=== PATIENT | female | born 1945 | race Caucasian/White ===

== ENCOUNTER 2017-06-17 04:25 | Emergency (ER) | payer MEDICARE, OTHER ==
[~2017-06-17] VITALS: Ht 165.1 cm; Wt 108.2 kg
[~2017-06-17 04:25] MED LIST: AMLO5TAB96 PO; DIOV160T8 PO; KAPIDEX; PANT20 PO; PROM25SU8 PO; TOPR50TA PO; VYTO10TA32 PO; ZITH250T PO
[2017-06-17 04:33] VITALS: BP 174/105; PULSE 97; RESP 20; TEMP 97.7; O2SAT 99
[2017-06-17] MEDS ORDERED: DIOV320T6 PO (04:57)
[2017-06-17] MEDS ORDERED: AMLO5 PO (04:59)
[2017-06-17] MEDS ORDERED: SIMV20TA PO (04:59)
[2017-06-17] MEDS ORDERED: TOPR50TA PO (04:59)
[2017-06-17] MEDS ORDERED: PANT20 PO (04:59)
[2017-06-17] MEDS ORDERED: AMOX250C3 PO (05:03)
[2017-06-17] MEDS ORDERED: SODIUM CHLOR 0.9% 1000 ML INJ 1,000 ML IV SCH (05:18)
--- NOTE | 2017-06-17 05:24 | PD ---
HPI Chief Complaint: GI Complaint Time Seen by Provider: 05:18 Travel History International Travel<30 days: No Contact w/Intl Traveler<30days: No Traveled to known affect area: No History of Present Illness HPI The patient is a 72-year-old female that began getting nauseated Tuesday night. She took some Pepto-Bismol. She had several black stools yesterday and was worried this might be bloody stools. She denies any fever. She is still nauseated. She still has some slight epigastric discomfort. She has had diarrhea twice yesterday evening. She denies any fever. She denies any history of bowel problems. She is on 250 mg of amoxicillin every other day because of frequent urinary tract infections. She states she had urinary frequency several days ago. PFSH Past Medical History Cardiovascular Problems: Yes (HTN, Mitral valve prolapse) High Cholesterol: Yes Diminished Hearing: No GERD: Yes Hypertension: Yes Tetanus Vaccination: < 5 Years Influenza Vaccination: Yes ?: Not Past Surgical History Cholecystectomy: Yes Hysterectomy: Yes (Partial) Joint Replacement: Yes (LEFT HIP) Social History Alcohol Use: No Tobacco Use: No Substance Use: No Allergies-Medications (Allergen,Severity, Reaction): Coded Allergies: moxifloxacin (Unverified Allergy, Severe, HIVES, 06/17/17) Sulfa (Sulfonamide Antibiotics) (Unverified Allergy, Intermediate, HIVES, 06/17/17) codeine (Unverified Adverse Reaction, Intermediate, HEADACHE, 06/17/17) Reported Meds & Prescriptions Reported Meds & Active Scripts Active Reported Amoxicillin 250 Mg Cap 250 Mg PO DAILY Simvastatin 20 Mg Tab 20 Mg PO DAILY Protonix (Pantoprazole Sodium) 20 Mg Tab 20 Mg PO DAILY Toprol XL (Metoprolol Succinate) 50 Mg Tab 50 Mg PO DAILY Norvasc (Amlodipine Besylate) 5 Mg Tab 5 Mg PO DAILY Diovan Hct (Valsartan-Hydrochlorothiazide) 320-25 Mg Tab 1 Tab PO DAILY [Kapidex] 60 Mg Review of Systems Except as stated in HPI: all other systems reviewed are Neg Physical Exam Narrative GENERAL: The patient is alert, oriented 3, slightly dehydrated-appearing and minimal apparent distress with her bilateral upper quadrant discomfort. She does not appear anemic. Her vital signs show blood pressure 170 05 but are otherwise normal. SKIN: Focused skin assessment warm/dry. No skin rash is seen. HEAD: Atraumatic. Normocephalic. EYES: Pupils equal and round. No scleral icterus. No injection or drainage. ENT: No nasal bleeding or discharge. Mucous membranes pink and moist. NECK: Trachea midline. No JVD. CARDIOVASCULAR: Regular rate and rhythm. No murmur appreciated. RESPIRATORY: No accessory muscle use. Clear to auscultation. Breath sounds equal bilaterally. GASTROINTESTINAL: Abdomen soft, with minimal discomfort in the bilateral upper quadrants, nondistended. Hepatic and splenic margins not palpable. No guarding or rebound is present. He does have some minimal bilateral flank tenderness. MUSCULOSKELETAL: No obvious deformities. No clubbing. No cyanosis. No edema. NEUROLOGICAL: Awake and alert. No obvious cranial nerve deficits. Motor grossly within normal limits. Normal speech. PSYCHIATRIC: Appropriate mood and affect; insight and judgment normal. RECTAL EXAM: No masses or tenderness, stool is brown, extremely soft and guaiac negative Data Data Last Documented VS Vital Signs Date Time Temp Pulse Resp B/P (MAP) Pulse Ox O2 Delivery O2 Flow Rate FiO2 06/17/17 04:33 97.7 97 20 174/105 (128) 99 Orders Orders Complete Blood Count With Diff (06/17/17 05:18) Comprehensive Metabolic Panel (06/17/17 05:18) Lipase (06/17/17 05:18) Urinalysis - C+S If Indicated (06/17/17 05:18) Iv Access Insert/Monitor (06/17/17 05:18) Ecg Monitoring (06/17/17 05:18) Oximetry (06/17/17 05:18) Ondansetron Inj (Zofran Inj) (06/17/17 05:30) Sodium Chlor 0.9% 1000 Ml Inj (Ns 1000 M (06/17/17 05:18) Sodium Chloride 0.9% Flush (Ns Flush) (06/17/17 05:30) Urine Culture (06/17/17 06:30) Labs Laboratory Tests Test 06/17/17 05:30 06/17/17 06:30 White Blood Count 7.0 TH/MM3 Red Blood Count 3.95 MIL/MM3 Hemoglobin 12.2 GM/DL Hematocrit 37.1 % Mean Corpuscular Volume 93.9 FL Mean Corpuscular Hemoglobin 30.9 PG Mean Corpuscular Hemoglobin Concent 32.9 % Red Cell Distribution Width 13.5 % Platelet Count 306 TH/MM3 Mean Platelet Volume 7.5 FL Neutrophils (%) (Auto) 81.4 % Lymphocytes (%) (Auto) 12.3 % Monocytes (%) (Auto) 4.0 % Eosinophils (%) (Auto) 1.8 % Basophils (%) (Auto) 0.5 % Neutrophils # (Auto) 5.7 TH/MM3 Lymphocytes # (Auto) 0.9 TH/MM3 Monocytes # (Auto) 0.3 TH/MM3 Eosinophils # (Auto) 0.1 TH/MM3 Basophils # (Auto) 0.0 TH/MM3 CBC Comment DIFF FINAL Differential Comment Blood Urea Nitrogen 21 MG/DL Creatinine 1.10 MG/DL Random Glucose 107 MG/DL Total Protein 7.2 GM/DL Albumin 3.2 GM/DL Calcium Level 8.8 MG/DL Alkaline Phosphatase 116 U/L Aspartate Amino Transf (AST/SGOT) 17 U/L Alanine Aminotransferase (ALT/SGPT) 19 U/L Total Bilirubin 0.5 MG/DL Sodium Level 141 MEQ/L Potassium Level 3.7 MEQ/L Chloride Level 109 MEQ/L Carbon Dioxide Level 26.0 MEQ/L Anion Gap 6 MEQ/L Estimat Glomerular Filtration Rate 49 ML/MIN Lipase 159 U/L Urine Collection Type CLEAN CATCH Urine Color YELLOW Urine Turbidity SLIGHT Urine pH 5.5 Urine Specific [place] 1.016 Urine Protein NEG mg/dL Urine Glucose (UA) NEG mg/dL Urine Ketones NEG mg/dL Urine Occult Blood NEG Urine Nitrite POS Urine Bilirubin NEG Urine Leukocyte Esterase SMALL Urine WBC 20-24 /hpf Urine WBC Clumps FEW Urine Squamous Epithelial Cells > 8 /hpf Urine Transitional Epithelial Cells 0-5 /hpf Urine Amorphous Sediment FEW Urine Bacteria MANY /hpf Microscopic Urinalysis Comment CULTURE INDICATED Urine Collection Time 0630 MDM Medical Decision Making Medical Screen Exam Complete: Yes Emergency Medical Condition: Yes Medical Record Reviewed: Yes Interpretation(s) The complete metabolic profile shows a BUN of 21, creatinine 1.1, GFR 49 with albumin 3.2 but is otherwise unremarkable. The lipase is normal. The urinalysis shows positive nitrite, small leukocyte esterase with 20-24 white cells and few white cell clumping's and many bacteria and culture is indicated. The CBC is normal. Differential Diagnosis Viral gastroenteritis, colitis, pancreatitis, dehydration, electrolyte disorder , cholecystitis, pyelonephritis, anemia, upper GI bleed, black stools from Pepto -Bismol Narrative Course The patient states about the only urinary antibiotic she can take his Cipro. She will be given Cipro 500 mg twice daily for 10 days. She needs to increase her liquid intake. The patient has likely both cystitis and pyelonephritis. Impressions: Gastroenteritis, pyelonephritis, cystitis Plan: The patient be given Zofran for nausea and Cipro for her urinary tract infection. Diagnosis Primary Impression: Pyelonephritis Additional Impressions: Gastroenteritis Mild dehydration Cystitis Additional Instructions: As we discussed, . He is extremely important to increase your fluid intake. You need to establish a good urine flow through your kidneys to fight a urine infection. The Cipro is one tablet twice daily for 10 days and the Zofran as every 4 hours to 6 hours as needed for nausea. Med/Other Pt SpecificInfo: Prescription(s) given Scripts Ciprofloxacin (Cipro) 500 Mg Tab 500 MG PO BID for Infection for 10 Days, #20 TAB 0 Refills Prov: Brandt Vaughn MD 06/17/17 Ondansetron (Zofran) 4 Mg Tab 4 MG PO Q6HR Y for NAUSEA OR VOMITING, #21 TAB 0 Refills Prov: Brandt Vaughn MD 06/17/17 Disposition: 01 DISCHARGE HOME Condition: Stable Brandt Vaughn MD Jun 17, 2017 05:24
[2017-06-17] MEDS ORDERED: ONDANSETRON HCL 4 MG/2 ML VIAL IVP ONE (05:30)
[2017-06-17] MEDS ORDERED: SODIUM CHLORIDE 0.9% FLUSH 10 ML FLUSH IV FLUSH PRN (05:30)
[2017-06-17 05:38] LABS: AUTOMATED NEUTROPHIL # 5.7 TH/MM3 (1.8-7.7); BASOPHIL % 0.5 % (0.0-2.0); EOSINOPHIL # 0.1 TH/MM3 (0-0.4); EOSINOPHIL % 1.8 % (0.0-4.0); HEMATOCRIT 37.1 % (35.0-46.0); HEMOGLOBIN 12.2 GM/DL (11.6-15.3); LYMPH % 12.3 % (9.0-44.0); LYMPHOCYTE # 0.9 TH/MM3 (1.0-4.8); MEAN CELL VOLUME 93.9 FL (80.0-100.0); MEAN CORPUSCULAR HEMOGLOBIN 30.9 PG (27.0-34.0); MEAN CORPUSCULAR HGB CONC 32.9 % (32.0-36.0); MEAN PLATELET VOLUME 7.5 FL (7.0-11.0); MONOCYTE # 0.3 TH/MM3 (0-0.9); NEUT % 81.4 % (16.0-70.0); PLATELET COUNT 306 TH/MM3 (150-450); RED BLOOD COUNT 3.95 MIL/MM3 (4.00-5.30); RED CELL DISTRIBUTION WIDTH 13.5 % (11.6-17.2)
[2017-06-17 05:45] LABS: CHLORIDE 109 MEQ/L (98-107); SODIUM (NA) 141 MEQ/L (136-145)
[2017-06-17 05:49] LABS: ALBUMIN 3.2 GM/DL (3.4-5.0); BLOOD UREA NITROGEN 21 MG/DL (7-18); CALCIUM 8.8 MG/DL (8.5-10.1); GLUCOSE,RANDOM 107 MG/DL (74-106); LIPASE 159 U/L (73-393)
[2017-06-17 05:52] LABS: ALT (GPT) 19 U/L (10-53); AST (GOT) 17 U/L (15-37); GLOMERULAR FILTRATION RATE 49 ML/MIN (>89)
[2017-06-17 05:54] LABS: TOTAL BILIRUBIN ADULT 0.5 MG/DL (0.2-1.0); TOTAL PROTEIN 7.2 GM/DL (6.4-8.2)
[2017-06-17 05:55] LABS: ALKALINE PHOSPHATASE 116 U/L (45-117)
[2017-06-17 06:45] LABS: BILIRUBIN, URINE NEG (NEG); BLOOD, URINE NEG (NEG); GLUCOSE,URINE NEG (NEG); KETONE, URINE NEG (NEG); NITRITE,URINE POS (NEG); PH, URINE 5.5 (5.0-8.5); URINE COLOR YELLOW (YELLW/STRAW); URINE LEUKOCYTE ESTERASE SMALL (NEG)
[2017-06-17 06:50] LABS: AMORPHOUS SEDIMENT, URINE FEW; BACTERIA, URINE MANY /hpf; SQUAMOUS EPITHELIAL CELL URINE > 8 /hpf (0-5)
[2017-06-17 06:51] LABS: TRANSITIONAL EPI CELLS, URINE 0-5 /hpf; WHITE BLOOD CELL CLUMPS FEW
[2017-06-17] MEDS ORDERED: CIPR-9 PO (07:20)
[2017-06-17] MEDS ORDERED: ZOFR4TAB PO (07:20)
[2017-06-17] MEDS ORDERED: CIPROFLOXACIN 500 MG TAB PO ONE (07:30)
[2017-06-17 07:31] VITALS: BP 175/92
== END 2017-06-17 07:38 | disposition home or self-care (01) ==
LOC: PHED 04:25
DX: N12 Tubulo-interstitial nephritis, not specified as acute or chronic (principal); K52.9 Noninfective gastroenteritis and colitis, unspecified; E86.0 Dehydration; N30.90 Cystitis, unspecified without hematuria; B96.20 Unspecified Escherichia coli [E. coli] as the cause of diseases classified elsewhere; I10 Essential (primary) hypertension
CPT/HCPCS: 80053; 81001; 83690; 85025; 87077; 87086; 87186; 96361; 96374; 99284; J2405; J7030

== ENCOUNTER 2017-06-18 13:36 | Emergency (ER) | payer MEDICARE, OTHER | END 2017-06-18 15:33 | disposition home or self-care (01) | LOC: PHED 13:36 | DX: N30.01 Acute cystitis with hematuria (principal); E78.00 Pure hypercholesterolemia, unspecified; I10 Essential (primary) hypertension; K21.9 Gastro-esophageal reflux disease without esophagitis; I34.1 Nonrheumatic mitral (valve) prolapse | CPT/HCPCS: 99281 ==

== ENCOUNTER 2017-06-26 07:19 | Emergency (ER) | payer MEDICARE, OTHER ==
[~2017-06-26] VITALS: Ht 165.1 cm; Wt 108.0 kg
[~2017-06-26 07:19] MED LIST changes: +AMLO5 PO; -AMLO5TAB96 PO; +AMOX250C3 PO; +CIPR-9 PO; -DIOV160T8 PO; +DIOV320T6 PO; -PROM25SU8 PO; +SIMV20TA PO; -VYTO10TA32 PO; -ZITH250T PO; +ZOFR4TAB PO
[2017-06-26 07:23] VITALS: BP 170/81; PULSE 93; RESP 16; TEMP 98.3; O2SAT 97
[2017-06-26] MEDS ORDERED: CEFU1TAB20 PO (08:00)
[2017-06-26 08:47] VITALS: BP 115/56; PULSE 77; RESP 20; O2SAT 97
[2017-06-26] MEDS ORDERED: LIDOCAINE HCL 1% 50 ML VIAL XX ONE (09:15)
--- NOTE | 2017-06-26 09:24 | PD ---
HPI Chief Complaint: Allergic/Adverse Reaction Time Seen by Provider: 09:10 Travel History International Travel<30 days: No Contact w/Intl Traveler<30days: No Traveled to known affect area: No History of Present Illness HPI Patient presents with reports of a recent UTI evaluated in the emergency room. Prescribed Cipro which is not sensitive. Secondary to allergies and intolerances medications patient was recommended to return to emergency room for a injection of Rocephin. Continues to have urinary symptoms including frequency and occasional pain. Denies nausea vomiting diarrhea or fever. She is scheduled to follow with urology on Tuesday. PFSH Past Medical History Cardiovascular Problems: Yes (HTN, Mitral valve prolapse) High Cholesterol: Yes Diminished Hearing: No GERD: Yes Hypertension: Yes Tetanus Vaccination: < 5 Years Influenza Vaccination: Yes ?: Not Past Surgical History Cholecystectomy: Yes Hysterectomy: Yes (Partial) Joint Replacement: Yes (LEFT HIP) Social History Alcohol Use: No Tobacco Use: No Substance Use: No Allergies-Medications (Allergen,Severity, Reaction): Coded Allergies: moxifloxacin (Unverified Allergy, Severe, HIVES, 06/26/17) Sulfa (Sulfonamide Antibiotics) (Unverified Allergy, Intermediate, HIVES, 06/26/17) nitrofurantoin (Verified Allergy, Intermediate, RASH, 06/26/17) codeine (Unverified Adverse Reaction, Intermediate, HEADACHE, 06/26/17) Reported Meds & Prescriptions Reported Meds & Active Scripts Active Reported Cefuroxime (Cefuroxime Axetil) 500 Mg Tab 500 Mg PO BID Simvastatin 20 Mg Tab 20 Mg PO DAILY Protonix (Pantoprazole Sodium) 20 Mg Tab 20 Mg PO DAILY Toprol XL (Metoprolol Succinate) 50 Mg Tab 50 Mg PO DAILY Norvasc (Amlodipine Besylate) 5 Mg Tab 5 Mg PO DAILY Diovan Hct (Valsartan-Hydrochlorothiazide) 320-25 Mg Tab 1 Tab PO DAILY [Kapidex] 60 Mg Review of Systems Genitourinary: Positive: Frequency, Dysuria Physical Exam Narrative GENERAL: Well-nourished, well-developed patient. SKIN: Focused skin assessment warm/dry. HEAD: Normocephalic. EYES: No scleral icterus. No injection or drainage. NECK: Supple, trachea midline. No JVD or lymphadenopathy. CARDIOVASCULAR: Regular rate and rhythm without murmurs, gallops, or rubs. RESPIRATORY: Breath sounds equal bilaterally. No accessory muscle use. GASTROINTESTINAL: Abdomen soft, non-tender, nondistended. MUSCULOSKELETAL: No cyanosis, or edema. BACK: Nontender without obvious deformity. No CVA tenderness. Data Data Last Documented VS Vital Signs Date Time Temp Pulse Resp B/P (MAP) Pulse Ox O2 Delivery O2 Flow Rate FiO2 06/26/17 08:47 77 20 115/56 (75) 97 06/26/17 07:23 98.3 Orders Orders Ceftriaxone Inj (Rocephin Inj) (06/26/17 09:15) Lidocaine 1% Inj (50 Ml) (Xylocaine 1% I (06/26/17 09:15) MDM Medical Decision Making Medical Screen Exam Complete: Yes Emergency Medical Condition: Yes Differential Diagnosis UTI, urosepsis, nephritis, cystitis Narrative Course Assessment and plan discussed with patient at bedside. Injection of Rocephin provided. Diagnosis Primary Impression: UTI (urinary tract infection) Qualified Codes: N39.0 - Urinary tract infection, site not specified Additional Instructions: Encourage fluids and a cranberry supplement. Tylenol or Motrin for any discomfort. Keep regular scheduled appointment with urology. Encouraged a walk -in clinic tomorrow for repeat injection of Rocephin. Return to emergency room with any onset of new symptoms. Med/Other Pt SpecificInfo: No Meds Exist/No RX given Disposition: 01 DISCHARGE HOME Condition: Good Sal Avila MD Jun 26, 2017 09:24
[2017-06-26] MEDS ORDERED: LIDOCAINE HCL 1% 20 ML VIAL OTHER ONE (09:30)
== END 2017-06-26 10:02 | disposition home or self-care (01) ==
LOC: PHED 07:19
DX: N39.0 Urinary tract infection, site not specified (principal); I10 Essential (primary) hypertension; I34.1 Nonrheumatic mitral (valve) prolapse; E78.00 Pure hypercholesterolemia, unspecified; K21.9 Gastro-esophageal reflux disease without esophagitis; Z79.899 Other long term (current) drug therapy
CPT/HCPCS: 96372; 99284; J0696

== ENCOUNTER 2017-06-27 09:24 | Emergency (ER) | payer MEDICARE, OTHER ==
[~2017-06-27] VITALS: Ht 165.1 cm; Wt 107.0 kg
[~2017-06-27 09:24] MED LIST changes: +CEFU1TAB20 PO
[2017-06-27 09:37] VITALS: BP 148/80; PULSE 88; RESP 16; TEMP 98.2; O2SAT 96
[2017-06-27] MEDS ORDERED: LIDOCAINE HCL 1% PF 30 ML VIAL XX ONE (10:00)
--- NOTE | 2017-06-27 10:12 | PD ---
HPI . Urinary tract infection Chief Complaint: Complaint Time Seen by Provider: 09:50 Travel History International Travel<30 days: No Contact w/Intl Traveler<30days: No Traveled to known affect area: No History of Present Illness HPI Patient presents for follow-up of UTI. Patient was initially seen here on 06/17 and diagnosed with pyelonephritis. She was treated with Cipro. Her urine culture grew Escherichia coli which was not sensitive to Cipro. She reports multiple drug allergies. She was seen here yesterday for continued UTI. He cause of the drug resistance and the multiple drug allergies, she was treated here with Rocephin. She was instructed to receive a second Rocephin injection today. She attempted to go to the [facility] but was unable to get an appointment for today. She subsequently presents back here for her second dose of Rocephin. She does state that her symptoms are improved today. She states that her symptoms have included frequency and dysuria. She denies any abdominal pain, fever or vomiting. She states that she did have some back pain but it has resolved. PFSH Past Medical History Cardiovascular Problems: Yes (HTN, Mitral valve prolapse) High Cholesterol: Yes Diminished Hearing: No GERD: Yes Hypertension: Yes Tetanus Vaccination: < 5 Years Influenza Vaccination: Yes Past Surgical History Cholecystectomy: Yes Hysterectomy: Yes (Partial) Joint Replacement: Yes (LEFT HIP) Social History Alcohol Use: No Tobacco Use: No Substance Use: No Allergies-Medications (Allergen,Severity, Reaction): Coded Allergies: moxifloxacin (Unverified Allergy, Severe, HIVES, 06/27/17) Sulfa (Sulfonamide Antibiotics) (Unverified Allergy, Intermediate, HIVES, 06/27/17) nitrofurantoin (Verified Allergy, Intermediate, RASH, 06/27/17) codeine (Unverified Adverse Reaction, Intermediate, HEADACHE, 06/27/17) Reported Meds & Prescriptions Reported Meds & Active Scripts Active Reported Cefuroxime (Cefuroxime Axetil) 500 Mg Tab 500 Mg PO BID Simvastatin 20 Mg Tab 20 Mg PO DAILY Protonix (Pantoprazole Sodium) 20 Mg Tab 20 Mg PO DAILY Toprol XL (Metoprolol Succinate) 50 Mg Tab 50 Mg PO DAILY Norvasc (Amlodipine Besylate) 5 Mg Tab 5 Mg PO DAILY Diovan Hct (Valsartan-Hydrochlorothiazide) 320-25 Mg Tab 1 Tab PO DAILY [Kapidex] 60 Mg Review of Systems Except as stated in HPI: all other systems reviewed are Neg General / Constitutional: No: Fever, Chills Gastrointestinal: No: Nausea, Vomiting, Abdominal Pain Genitourinary: Positive: Frequency, Dysuria, No: Flank Pain Physical Exam Narrative GENERAL: Awake and alert and in no acute distress. SKIN: warm/dry. Normal color and turgor. HEAD: Normocephalic. Atraumatic. EYES: Pupils equal and round. No scleral icterus. No injection or drainage. ENT: No nasal bleeding or discharge. Mucous membranes pink and moist. NECK: Trachea midline. Full range of motion without pain.. CARDIOVASCULAR: Regular rate and rhythm. RESPIRATORY: No accessory muscle use. Clear to auscultation. Breath sounds equal bilaterally. GASTROINTESTINAL: Abdomen soft. Nontender. Bowel sounds present. Nondistended. No CVA tenderness. MUSCULOSKELETAL: No obvious deformities. NEUROLOGICAL: Awake and alert. No obvious cranial nerve deficits. Motor grossly within normal limits. Normal speech. PSYCHIATRIC: Appropriate mood and affect; insight and judgment normal. Data Data Last Documented VS Vital Signs Date Time Temp Pulse Resp B/P (MAP) Pulse Ox O2 Delivery O2 Flow Rate FiO2 06/27/17 09:37 98.2 88 16 148/80 (102) 96 Orders Orders Urinalysis - C+S If Indicated (06/27/17 09:25) Food And Nutrition Professor / Telemetry [email or web address] (06/27/17 09:57) Vital Signs (Adult) Q4H (06/27/17 09:57) Diet 1999 [place] Cons Carb (06/27/17 Breakfast) Activity Oob With Assistance (06/27/17 09:57) Notify Dr: Other (06/27/17 09:57) Ceftriaxone Inj (Rocephin Inj) (06/27/17 10:00) Lidocaine Pf 1% Inj (Xylocaine-Mpf 1% In (06/27/17 10:00) Ed Discharge Order (06/27/17 10:11) MDM Medical Decision Making Medical Screen Exam Complete: Yes Emergency Medical Condition: Yes Medical Record Reviewed: Yes (Please see HPI for pertinent review of records) Differential Diagnosis Final differential diagnosis of urinary symptoms includes but is not limited to UTI, kidney stone, pyelonephritis, bacterial vaginosis, yeast infection, urinary retention Narrative Course Patient presents for follow-up of UTI. I have ordered a second dose of Rocephin. She has been instructed to either return here is clinically more for a third and final dose of Rocephin. Diagnosis Primary Impression: Urinary tract infection Qualified Codes: N30.00 - Acute cystitis without hematuria Patient Instructions: General Instructions Departure Forms: Tests/Procedures Additional Instructions: Third and final Rocephin shot tomorrow Disposition: 01 DISCHARGE HOME Condition: Stable Fozia Greene MD Jun 27, 2017 10:12
== END 2017-06-27 10:54 | disposition home or self-care (01) ==
LOC: PHED 09:24
DX: N30.00 Acute cystitis without hematuria (principal); I10 Essential (primary) hypertension; K21.9 Gastro-esophageal reflux disease without esophagitis; I34.1 Nonrheumatic mitral (valve) prolapse; E78.00 Pure hypercholesterolemia, unspecified
CPT/HCPCS: 96372; 99281; J0696

== ENCOUNTER 2017-08-10 16:23 | Emergency (ER) | payer MEDICARE, OTHER ==
[~2017-08-10] VITALS: Ht 162.6 cm; Wt 108.0 kg
[~2017-08-10 16:23] MED LIST changes: -AMOX250C3 PO; -CIPR-9 PO; -ZOFR4TAB PO
[2017-08-10 16:29] VITALS: BP 177/79; PULSE 86; RESP 16; TEMP 97.9; O2SAT 98
[2017-08-10] MEDS ORDERED: HYDR25TA5 PO (16:49)
[2017-08-10] MEDS ORDERED: AMOX500C PO (16:49)
[2017-08-10] MEDS ORDERED: FLUT50SP EACH NARE (17:07)
[2017-08-10] MEDS ORDERED: BENZ100 PO (17:07)
--- NOTE | 2017-08-10 17:07 | PD ---
HPI Chief Complaint: Cold / Flu Symptoms Time Seen by Provider: 16:52 Travel History International Travel<30 days: No Contact w/Intl Traveler<30days: No Traveled to known affect area: No History of Present Illness HPI 72-year-old female with PMH of hypertension, seasonal allergies presents to the ED for evaluation of 4 day history of sinus congestion, clear rhinorrhea, cough productive of clear mucus. She endorses full sensation in the right ear. She endorses a single episode of posttussive emesis. She denies fever, chills, nausea, shortness of breath, chest pain. She endorses sick contacts, states that she helped a friend with a cold a few days ago. She's been taking Claritin at home with no improvement of symptoms. She lives in [place] and is here for the [place]. She returns home in a few days. PFSH Past Medical History Cardiovascular Problems: Yes (HTN, Mitral valve prolapse) High Cholesterol: Yes Diminished Hearing: No GERD: Yes Hypertension: Yes Tetanus Vaccination: < 5 Years Influenza Vaccination: Yes Past Surgical History Cholecystectomy: Yes Hysterectomy: Yes (Partial) Joint Replacement: Yes (LEFT HIP) Social History Alcohol Use: No Tobacco Use: No Substance Use: No Allergies-Medications (Allergen,Severity, Reaction): Coded Allergies: moxifloxacin (Unverified Allergy, Severe, HIVES, 08/10/17) Sulfa (Sulfonamide Antibiotics) (Unverified Allergy, Intermediate, HIVES, 08/10/17) nitrofurantoin (Verified Allergy, Intermediate, RASH, 08/10/17) codeine (Unverified Adverse Reaction, Intermediate, HEADACHE, 08/10/17) Reported Meds & Prescriptions Reported Meds & Active Scripts Active Coditussin AC Liq (Guaifenesin-Codeine Liq) 200-10 Mg/5ML Liqd 5 Ml PO Q4H PRN Tessalon Perles (Benzonatate) 100 Mg Cap 200 Mg PO TID PRN Fluticasone Nasal [place] 50 Mcg/Act Naspr 100 Mcg EACH NARE BID 50 mcg/spray Reported Amoxicillin 500 Mg Cap 500 Mg PO EVERY OTHER DAY Hydrochlorothiazide 25 Mg Tab 25 Mg PO DAILY Simvastatin 20 Mg Tab 20 Mg PO DAILY Protonix (Pantoprazole Sodium) 20 Mg Tab 20 Mg PO DAILY Toprol XL (Metoprolol Succinate) 50 Mg Tab 50 Mg PO DAILY Norvasc (Amlodipine Besylate) 5 Mg Tab 5 Mg PO DAILY Diovan Hct (Valsartan-Hydrochlorothiazide) 320-25 Mg Tab 1 Tab PO DAILY [Kapidex] 60 Mg Review of Systems Except as stated in HPI: all other systems reviewed are Neg Physical Exam Narrative GENERAL: Well-nourished, well-developed pleasant beasts white female in no acute distress. SKIN: Warm and dry. HEAD: Normocephalic. Atraumatic. EYES: No scleral icterus. No injection or drainage. PERRLA. EOMI. ENT: Pearly quintero tympanic membranes bilaterally. Nasal mucosa is moist. No tenderness to palpation of the facial sinuses. Oropharynx without erythema, edema or exudate. Posterior cobblestoning noted. NECK: Supple, trachea midline. No JVD or lymphadenopathy. CARDIOVASCULAR: Regular rate and rhythm without murmurs, gallops, or rubs. RESPIRATORY: Breath sounds clear and equal bilaterally. No accessory muscle use. GASTROINTESTINAL: Abdomen soft, non-tender, nondistended. + Bowel sounds MUSCULOSKELETAL: No cyanosis, or edema. BACK: Nontender without obvious deformity. No CVA tenderness. Data Data Last Documented VS Vital Signs Date Time Temp Pulse Resp B/P (MAP) Pulse Ox O2 Delivery O2 Flow Rate FiO2 08/10/17 16:29 97.9 86 16 177/79 (111) 98 Orders Orders Ed Discharge Order (08/10/17 17:07) MDM Medical Decision Making Medical Screen Exam Complete: Yes Emergency Medical Condition: Yes Differential Diagnosis Upper airway cough syndrome versus seasonal allergies versus viral syndrome versus other Narrative Course 72-year-old female with PMH of hypertension, seasonal allergies presents to the ED for evaluation of 4 day history of sinus congestion, clear rhinorrhea, cough productive of clear mucus. She endorses a single episode of posttussive emesis. She endorses sick contacts, states that she helped a friend with a cold a few days ago. She's been taking Claritin at home with no improvement of symptoms. Was reviewed. Patient's hypertensive on presentation. Physical exam consistent with postnasal drip. Patient cannot take decongestants because of her hypertension. She is prescribed fluticasone nasal spray, Tessalon Perles. She complains that her cough keeps her up at night. She was provided with a few doses of Coditussin. She is stable and discharged home. Diagnosis Primary Impression: Upper airway cough syndrome Referrals: Ear / Nose / Throat Specialist Patient Instructions: General Instructions, Postnasal Drip (DC) Additional Instructions: Rest, hydrate. Continue daily Claritin at home. Use fluticasone nasal spray, one pump in each nostril twice a day. Tessalon Perles every 8 hours to reduce cough. Follow up with ENT if symptoms persist. Return to the ED for worsening symptoms or any urgent or emergent medical condition. Med/Other Pt SpecificInfo: Prescription(s) given Scripts Guaifenesin-Codeine Liq (Coditussin AC Liq) 200-10 Mg/5ML Liqd 5 ML PO Q4H Y, #60 ML 0 Refills Prov: Renaldo Galicia MD 08/10/17 Benzonatate (Tessalon Perles) 100 Mg Cap 200 MG PO TID Y for COUGH, #20 CAP 0 Refills Prov: Renaldo Galicia MD 08/10/17 Fluticasone Nasal [place] (Fluticasone Nasal [place]) 50 Mcg/Act Naspr 100 MCG EACH NARE BID for Allergy Management, #1 BOTTLE 0 Refills 50 mcg/spray Prov: Renaldo Galicia MD 08/10/17 Disposition: 01 DISCHARGE HOME Condition: Stable Marlene Figueroa Aug 10, 2017 17:06
[2017-08-10] MEDS ORDERED: GUAI1LIQ13 PO (17:25)
== END 2017-08-10 17:31 | disposition home or self-care (01) ==
LOC: PHEFT 16:23
DX: R05 Cough (principal); E78.00 Pure hypercholesterolemia, unspecified; I10 Essential (primary) hypertension; K21.9 Gastro-esophageal reflux disease without esophagitis
CPT/HCPCS: 99283